=== PATIENT | male | born 1995 | race Caucasian/White ===

== ENCOUNTER 2023-12-24 10:49 | Day surgery (SDC) | payer BC ==
[~2023-12-24] VITALS: Ht 185.4 cm; Wt 90.9 kg
[2023-12-24] MEDS: GLUCAGON INJ 1MG VIAL IV STA (12:08)
[2023-12-24] MEDS ORDERED: HOME MED LIST COMPLETE! XX SCH (15:55)
[2023-12-24] MEDS: PANTOPRAZOLE 40MG VIAL IV ONE (17:40)
[2023-12-24] MEDS ORDERED: PANT40TA29 PO (19:32)
[2023-12-24 20:20] VITALS: BP 119/72; TEMP 97; O2SAT 100
== END 2023-12-24 20:38 | disposition home or self-care (01) ==
LOC: M ED 10:49 → M SDC 15:55
PROVIDERS: ATTEND Surgery
DX: T18.128A Food in esophagus causing other injury, initial encounter (principal); T18.108A Unspecified foreign body in esophagus causing other injury, initial encounter; Z88.1 Allergy status to other antibiotic agents
CPT/HCPCS: 43235; 74021; 96374; 99284; J1610; J2470